=== PATIENT | female | born 1990 | race Two or more races ===

== ENCOUNTER 2017-09-02 04:43 | Emergency (ER) | payer MEDICAID ==
[2017-09-02 04:51] VITALS: BP 148/73
== END 2017-09-02 05:51 | disposition home or self-care (01) ==
LOC: ED 04:43
DX: N39.0 Urinary tract infection, site not specified (principal); N12 Tubulo-interstitial nephritis, not specified as acute or chronic
CPT/HCPCS: J1885; Q0162

== ENCOUNTER 2017-09-24 06:29 | Emergency (ER) | payer MEDICAID ==
[~2017-09-24] VITALS: Ht 160 cm; Wt 59.1 kg
[2017-09-24 07:34] LABS: BASOPHIL % 0.5 % (0-2); PLATELET COUNT 281 x10^3mcL (130-400); RED CELL DISTRIBUTION WIDTH 12.8 % (11.5-14.5)
[2017-09-24 07:52] LABS: CARBON DIOXIDE 29.2 mmol/L (21-32); CHLORIDE SERUM 104 mmol/L (98-107); CREATININE SERUM 0.7 mg/dL (0.6-1.0); GFR1 > 60 mL/min; GLUCOSE SERUM 70 mg/dL (74-106); POTASSIUM SERUM 3.6 mmol/L (3.5-5.1); SODIUM SERUM 139 mmol/L (136-145)
[2017-09-24 07:57] LABS: UA SPECIFIC GRAVITY 1.015 (1.005-1.035); microscopic required? YES; urine erythrocyte 2+ (NEGATIVE)
[2017-09-24 07:57] LABS: ALBUMIN 3.7 g/dL (3.4-5.0); ALKALINE PHOSPHATASE 43 U/L (46-116); ALT/SGPT 17 U/L (14-59); AST/SGOT 15 U/L (15-37); BILIRUBIN TOTAL 0.27 mg/dL (0.20-1.00); TOTAL PROTEIN, SERUM 7.7 g/dL (6.4-8.2)
[2017-09-24 08:23] VITALS: BP 121/83
== END 2017-09-24 09:31 | disposition home or self-care (01) ==
LOC: ED 06:29
PROVIDERS: Specialist
DX: N39.0 Urinary tract infection, site not specified (principal); E05.90 Thyrotoxicosis, unspecified without thyrotoxic crisis or storm; E16.2 Hypoglycemia, unspecified
CPT/HCPCS: 36415; 87491; 87591; J0696

== ENCOUNTER 2018-06-18 05:45 | Emergency (ER) | payer SELFPAY ==
[~2018-06-18] VITALS: Ht 157.5 cm; Wt 55.3 kg
[2018-06-18 06:30] LABS: BASOPHIL % 0.5 % (0-2); PLATELET COUNT 327 x10^3mcL (130-400)
[2018-06-18 06:43] LABS: AMPHETAMINE QUAL UR NONE DETECTED (See below)
[2018-06-18 07:02] LABS: CARBON DIOXIDE 27.7 mmol/L (21-32); CHLORIDE SERUM 103 mmol/L (98-107); CREATININE SERUM 0.7 mg/dL (0.6-1.0); GFR1 > 60 mL/min; GLUCOSE SERUM 83 mg/dL (74-106); POTASSIUM SERUM 3.5 mmol/L (3.5-5.1); SODIUM SERUM 137 mmol/L (136-145)
[2018-06-18 07:16] LABS: ALBUMIN 4.5 g/dL (3.4-5.0); ALKALINE PHOSPHATASE 47 U/L (46-116); AST/SGOT 18 U/L (15-37); BILIRUBIN TOTAL 0.36 mg/dL (0.20-1.00)
[2018-06-18 07:21] LABS: TOTAL PROTEIN, SERUM 8.7 g/dL (6.4-8.2)
[2018-06-18 07:25] LABS: ALT/SGPT 18 U/L (14-59)
[2018-06-18 07:52] VITALS: BP 106/66
== END 2018-06-18 07:52 | disposition home or self-care (01) ==
LOC: ED 05:45
PROVIDERS: Emergency Medicine
DX: R00.2 Palpitations (principal); E03.9 Hypothyroidism, unspecified
CPT/HCPCS: 36415; G0480

== ENCOUNTER 2019-09-05 22:52 | Emergency (ER) | payer SELFPAY ==
[2019-09-05 23:01] VITALS: Ht 160 cm
[2019-09-06 00:41] VITALS: BP 115/77
== END 2019-09-06 00:41 | disposition home or self-care (01) ==
LOC: ED 22:52
DX: J02.9 Acute pharyngitis, unspecified (principal); E03.9 Hypothyroidism, unspecified; F32.9 Major depressive disorder, single episode, unspecified
CPT/HCPCS: 87804; J1885

== ENCOUNTER 2019-09-15 19:10 | Emergency (ER) | payer SELFPAY ==
[~2019-09-15] VITALS: Ht 160 cm; Wt 64.9 kg
[2019-09-15 19:17] VITALS: Ht 160 cm; Wt 64.9 kg
[2019-09-15 21:44] LABS: BASOPHIL % 0.8 % (0-2); PLATELET COUNT 324 x10^3mcL (130-400); RED CELL DISTRIBUTION WIDTH 13.6 % (11.5-14.5)
[2019-09-15 21:53] LABS: CARBON DIOXIDE 29.6 mmol/L (21-32); CHLORIDE SERUM 105 mmol/L (98-107); CREATININE SERUM 0.7 mg/dL (0.6-1.0); GFR1 > 60 mL/min; GLUCOSE SERUM 82 mg/dL (74-106); POTASSIUM SERUM 3.5 mmol/L (3.5-5.1); SODIUM SERUM 142 mmol/L (136-145)
[2019-09-15 22:25] LABS: T3 TOTAL 1.11 ng/mL
[2019-09-15 22:56] VITALS: BP 111/74
== END 2019-09-15 22:56 | disposition home or self-care (01) ==
LOC: ED 19:10
PROVIDERS: Emergency Medicine
DX: R07.89 Other chest pain (principal); F41.0 Panic disorder [episodic paroxysmal anxiety]; E05.90 Thyrotoxicosis, unspecified without thyrotoxic crisis or storm; F32.9 Major depressive disorder, single episode, unspecified
CPT/HCPCS: 36415; Q0092